=== PATIENT | female | born 1950 | race Caucasian/White ===

== ENCOUNTER 2020-01-10 17:18 | Emergency (ER) | payer MEDICARE, MEDICAID ==
[~2020-01-10] VITALS: Ht 157.5 cm; Wt 52.2 kg
[~2020-01-10 17:18] MED LIST: NO HOME MEDS; PHEN-786 PO
[2020-01-10] MEDS ORDERED: normal saline 1000ML IV soln IVB ONE (17:25)
[2020-01-10 17:49] LABS: ALANINE AMINOTRANSFERASE 7 U/L (12-78); ALBUMIN 3.3 G/DL (3.4-5.0); ALKALINE PHOSPHATASE 107 IU/L (46-116); ANION GAP 9 (8-16); ASPARTATE AMINO TRANSFERASE 14 U/L (10-37); BILIRUBIN,TOTAL 0.3 MG/DL (0.1-1.0); BLOOD UREA NITROGEN 13 MG/DL (7-18); BUN/CREATININE RATIO 10.2 (6.6-38.0); CALCIUM 10.5 MG/DL (8.5-10.1); CHLORIDE 108 MMOL/L (99-107); CREATININE 1.27 MG/DL (0.40-0.90); GLUCOSE 157 MG/DL (70-104); POTASSIUM 4.5 MMOL/L (3.5-5.1); SODIUM 138 MMOL/L (135-145); TOTAL CARBON DIOXIDE 21.5 MMOL/L (24-32); TOTAL PROTEIN 6.5 G/DL (6.4-8.2); eGFR 42 ML/MIN
--- NOTE | 2020-01-10 18:25 | NUR ---
rcvd call from lab [facility], CBC clotted, she is re ordering
--- NOTE | 2020-01-10 18:42 | NUR ---
relieving RN for break, pt is resting quietly on bed, coreroom foundry laborer at bedside to redraw blood, gave pt warm blanket
[2020-01-10 18:48] LABS: BASOPHILS % (AUTO) 0.4 % (0-1); EOSINOPHILS # (AUTO) 0.1 X10'3 (0-0.9); EOSINOPHILS % (AUTO) 0.8 % (0-6); HEMATOCRIT 41.9 % (35.0-45.0); HEMOGLOBIN 13.6 g/dl (12.0-16.0); LYMPHOCYTES # (AUTO) 1.1 X10'3 (1.1-4.8); LYMPHOCYTES % (AUTO) 10.6 % (21-51); MEAN CORPUSCULAR HGB CONC 32.4 g/dL (33.0-36.5); MEAN CORPUSCULAR VOLUME 86.3 FL (78-98); MEAN PLATELET VOLUME 10.6 FL (7.4-10.4); MONOCYTES # (AUTO) 0.7 X10'3 (0-0.9); MONOCYTES % (AUTO) 6.3 % (2-12); NEUTROPHILS # (AUTO) 8.4 X10'3 (1.8-7.7); NEUTROPHILS % (AUTO) 81.9 % (42-75); RED BLOOD COUNT 4.85 X10'6 (4.20-5.60); RED CELL DISTRIBUTION WIDTH 15.1 % (11.5-14.5); WHITE BLOOD COUNT 10.3 X10'3 (4.5-11.0)
[2020-01-10 19:35] LABS: PLATELET COUNT 211 X10'3 (140-440)
[2020-01-10] MEDS ORDERED: HYDROcodone/acetaminophen 5mg/325mg tablet PO ONE (19:55)
[2020-01-10] MEDS ORDERED: HYDR-4383 PO (19:57)
[2020-01-10 20:20] VITALS: BP 126/81
== END 2020-01-10 20:50 | disposition home or self-care (01) ==
LOC: ER 17:18
DX: R42 Dizziness and giddiness (principal); I10 Essential (primary) hypertension; F17.200 Nicotine dependence, unspecified, uncomplicated; Z79.899 Other long term (current) drug therapy
CPT/HCPCS: 36415; 80053; 85025; 93005; 96360; 96361; 99285; J7030; 99284

== ENCOUNTER 2021-02-06 13:02 | Outpatient (CLI) | payer MEDICARE, MEDICAID ==
[~2021-02-06 13:02] MED LIST changes: +HYDR-4383 PO
== END 2021-02-06 23:59 | disposition home or self-care (01) ==
LOC: RAD 13:02
PROVIDERS: ATTEND Internal Medicine Gastroenterology
DX: K21.00 Gastro-esophageal reflux disease with esophagitis, without bleeding (principal); R13.14 Dysphagia, pharyngoesophageal phase
CPT/HCPCS: 74230

== ENCOUNTER 2024-06-21 02:04 | Inpatient (IN) | payer MEDICARE, MEDICAID ==
[~2024-06-21] VITALS: Ht 157.5 cm; Wt 45.0 kg
[2024-06-21] MEDS ORDERED: iohexol 350MG/ML 100ml bottle IV ONE (02:26)
[2024-06-21] MEDS: fentaNYL/PF 50MCG/1 ML 2ML syringe IV ONE (03:39)
[2024-06-21] MEDS: acetaminophen 1,000mg/100ml IV 100 ML IV ONE (03:40)
[2024-06-21 03:43] LABS: BASOPHILS % (AUTO) 0.4 % (0-1); EOSINOPHILS # (AUTO) 0.1 X10'3 (0-0.9); EOSINOPHILS % (AUTO) 1.9 % (0-6); HEMOGLOBIN 13.7 g/dl (12.0-16.0); NEUTROPHILS # (AUTO) 3.4 X10'3 (1.8-7.7)
[2024-06-21 03:45] LABS: HEMATOCRIT 41.1 % (35.0-45.0); LYMPHOCYTES # (AUTO) 1.8 X10'3 (1.1-4.8); LYMPHOCYTES % (AUTO) 30.9 % (21-51); MEAN CORPUSCULAR HEMOGLOBIN 27.2 PG (27.0-31.0); MEAN CORPUSCULAR HGB CONC 33.3 g/dL (33.0-36.5); MEAN CORPUSCULAR VOLUME 81.6 FL (78-98); MEAN PLATELET VOLUME 11.4 FL (7.4-10.4); MONOCYTES # (AUTO) 0.6 X10'3 (0-0.9); MONOCYTES % (AUTO) 9.4 % (2-12); NEUTROPHILS % (AUTO) 57.4 % (42-75); PLATELET COUNT 113 X10'3 (140-440); RED BLOOD COUNT 5.04 X10'6 (4.20-5.60); RED CELL DISTRIBUTION WIDTH 16.3 % (11.5-14.5); WHITE BLOOD COUNT 5.9 X10'3 (4.5-11.0)
[2024-06-21 03:47] LABS: ALBUMIN 3.1 G/DL (3.4-5.0); ANION GAP 4 (8-16); BLOOD UREA NITROGEN 15 MG/DL (7-18); BUN/CREATININE RATIO 14.9 (10.0-20.0); CALCIUM 10.3 MG/DL (8.5-10.1); CHLORIDE 108 MMOL/L (99-107); CREATININE 1.01 MG/DL (0.40-0.90); GLUCOSE 126 MG/DL (70-104); POTASSIUM 4.4 MMOL/L (3.5-5.1); SODIUM 137 MMOL/L (135-145); TOTAL CARBON DIOXIDE 25.5 MMOL/L (24-32); eCRCL 35 ML/MIN; eGFR 54 ML/MIN
[2024-06-21 03:51] LABS: APTT 26 SECONDS (22-32); INR 1.1 INR; PROTHROMBIN TIME 11.3 SECONDS (9.0-12.0)
[2024-06-21] MEDS ORDERED: magnesium Cl slow-release 64mg tablet PO PRN (04:40)
[2024-06-21] MEDS ORDERED: ondansetron/PF 4mg/2ml inj IV PRN (04:40)
[2024-06-21] MEDS ORDERED: mag hydrox/Alum hydrox/simeth 30ml oral suspension PO PRN (04:40)
[2024-06-21] MEDS: normal saline 1000ml 1,000 ML IV SCH (04:40)
[2024-06-21] MEDS ORDERED: magnesium sulf-water 4G/100mL 100 ML IV PRN (04:40)
[2024-06-21] MEDS ORDERED: potassium Cl 20 mEq SR tablet PO PRN ×2 (04:40)
[2024-06-21] MEDS ORDERED: acetaminophen 325mg tablet PO PRN (04:40)
[2024-06-21] MEDS ORDERED: potassium Cl 40MEQ/1/2NS 520ml 520 ML IV PRN (04:40)
[2024-06-21] MEDS ORDERED: magnesium sulf-water 2g/50mL 50 ML IV PRN (04:40)
[2024-06-21] MEDS ORDERED: magnesium hydroxide 30ml (MOM) UD suspension PO PRN (04:40)
[2024-06-21 05:07] LABS: ANISOCYTOSIS 1+; PLATELET ESTIMATE DECREASED
[2024-06-21 05:08] LABS: LARGE PLATELETS FEW
[2024-06-21] MEDS: K and/or MAG REPLACEMENT MC SCH (08:00)
[2024-06-21] MEDS: docusate sod 100mg capsule PO SCH (08:00)
[2024-06-21 08:18] LABS: HEMOGLOBIN A1C 5.3 % (4.5-6.2)
[2024-06-21 08:29] LABS: MAGNESIUM 2.2 MG/DL (1.5-2.4); THYROID STIMULATING HORMONE 1.42 ulU/ml (0.34-4.50)
[2024-06-21] MEDS: morphine 2 MG/ML inj. syringe IV PRN (14:45)
[2024-06-21 15:21] LABS: BILIRUBIN,URINE NEGATIVE (Neg); CLARITY,URINE CLOUDY (Clear); COLOR,URINE YELLOW (Yellow); GLUCOSE, URINE NEGATIVE (Neg); KETONES,URINE NEGATIVE (Neg); LEUKOCYTE ESTERASE ,URINE SMALL (Neg); NITRITES, URINE POSITIVE (Neg); OCCULT BLOOD,URINE NEGATIVE (Neg); PROTEIN,URINE NEGATIVE (Neg)
[2024-06-21 15:29] LABS: UA COLLECTION TYPE CLN CATCH MIDSTREAM
[2024-06-21 15:30] LABS: BACTERIA,URINE 4+ /HPF (Neg); SQUAMOUS EPITHELIAL CELL,UR MODERATE /LPF (FEW); WBC,URINE TNTC /HPF (0-4)
[2024-06-21 15:32] LABS: WBC CLUMPS,URINE FEW /HPF (NEGATIVE)
[2024-06-21 18:00] VITALS: BP 160/97; PULSE 82; RESP 20; TEMP 98.8; O2SAT 96
[2024-06-21] MEDS: lisinopril 5mg tablet PO SCH (19:10)
[2024-06-21 22:00] VITALS: BP 154/84; PULSE 93; RESP 18; TEMP 98.4; O2SAT 95
[2024-06-22] VITALS (25 sets, daily range): BP systolic 86–138; BP diastolic 54–78; PULSE 63–79; RESP 13–18; TEMP 97.6–99.2; O2SAT 93–98
[2024-06-22] MEDS ORDERED: fentaNYL/PF 50MCG/1 ML 2ML syringe IV PRN ×2 (06:15)
[2024-06-22] MEDS ORDERED: labetalol 20mg/4ml (5mg/ml) syringe IV PRN (06:15)
[2024-06-22] MEDS ORDERED: ondansetron/PF 4mg/2ml inj IV PRN (06:15)
[2024-06-22] MEDS ORDERED: morphine 4 MG/ML inj SYRINge IV PRN (06:15)
[2024-06-22] MEDS: ringers solution, lacted 1,000 ML IV SCH (06:15)
[2024-06-22] MEDS ORDERED: hydrALAZINE 20mg/ml inj. IV PRN (06:15)
[2024-06-22] MEDS ORDERED: morphine 2 MG/ML inj. syringe IV PRN (06:15)
[2024-06-22 06:48] LABS: ALANINE AMINOTRANSFERASE 79 U/L (12-78); ALBUMIN 2.7 G/DL (3.4-5.0); ALKALINE PHOSPHATASE 153 IU/L (46-116); ANION GAP 6 (8-16); ASPARTATE AMINO TRANSFERASE 45 U/L (10-37); BILIRUBIN,TOTAL 0.7 MG/DL (0.1-1.0); BLOOD UREA NITROGEN 12 MG/DL (7-18); BUN/CREATININE RATIO 13.2 (10.0-20.0); CALCIUM 9.7 MG/DL (8.5-10.1); CHLORIDE 107 MMOL/L (99-107); CHOL/HDL RATIO 4.8 (0.00-4.99); CHOLESTEROL 158 MG/DL (0-200); CREATININE 0.91 MG/DL (0.40-0.90); GLUCOSE 101 MG/DL (70-104); HDL CHOLESTEROL 33 MG/DL (35-60); LDL CHOLESTEROL 87 MG/DL (50-100); POTASSIUM 4.2 MMOL/L (3.5-5.1); SODIUM 134 MMOL/L (135-145); TOTAL CARBON DIOXIDE 21.5 MMOL/L (24-32); TOTAL PROTEIN 5.3 G/DL (6.4-8.2); TRIGLYCERIDES 167 MG/DL (20-135); eCRCL 39 ML/MIN; eGFR 60 ML/MIN
[2024-06-22 06:57] LABS: BASOPHILS % (AUTO) 0.3 % (0-1); EOSINOPHILS # (AUTO) 0.1 X10'3 (0-0.9); EOSINOPHILS % (AUTO) 1.4 % (0-6); LYMPHOCYTES % (AUTO) 34.3 % (21-51)
[2024-06-22 06:58] LABS: HEMATOCRIT 39.3 % (35.0-45.0); HEMOGLOBIN 12.8 g/dl (12.0-16.0); LYMPHOCYTES # (AUTO) 2.7 X10'3 (1.1-4.8); MEAN CORPUSCULAR HEMOGLOBIN 26.6 PG (27.0-31.0); MEAN CORPUSCULAR HGB CONC 32.6 g/dL (33.0-36.5); MEAN CORPUSCULAR VOLUME 81.7 FL (78-98); MONOCYTES # (AUTO) 0.7 X10'3 (0-0.9); MONOCYTES % (AUTO) 8.3 % (2-12); NEUTROPHILS # (AUTO) 4.5 X10'3 (1.8-7.7); NEUTROPHILS % (AUTO) 55.7 % (42-75); PLATELET COUNT 113 X10'3 (140-440); RED BLOOD COUNT 4.81 X10'6 (4.20-5.60)
[2024-06-22] MEDS ORDERED: LIDOcaine 2% (20mg/ml) 5ml vial ONE (07:20)
[2024-06-22] MEDS ORDERED: propofol inj 20 ML IV ONE (07:20)
[2024-06-22] MEDS: vancomycin/NS 1 GM ADD-VANTAGE 250 ML IV STA (07:30)
[2024-06-22] MEDS ORDERED: cefazolin 2gm/D5W 100ml IV.soln IV ONE (07:35)
[2024-06-22] MEDS ORDERED: fentaNYL/PF 50MCG/1 ML 2ML syringe ONE (07:42)
[2024-06-22] MEDS ORDERED: midazolam 1 mg/ML 2ml injection ONE (07:43)
[2024-06-22] MEDS ORDERED: dexamethasone sod phosphate 4mg/ml inj. ONE (07:59)
[2024-06-22] MEDS: ceFAZolin/D5W- 1GM premix 50 ML IV SCH (08:00)
[2024-06-22] MEDS ORDERED: acetaminophen 1,000mg/100ml IV 100 ML IV ONE (08:03)
[2024-06-23 05:51] LABS: BASOPHILS % (AUTO) 0.2 % (0-1); HEMOGLOBIN 12.1 g/dl (12.0-16.0); LYMPHOCYTES # (AUTO) 2.4 X10'3 (1.1-4.8); MEAN CORPUSCULAR VOLUME 82.2 FL (78-98); WHITE BLOOD COUNT 10.1 X10'3 (4.5-11.0)
[2024-06-23 05:53] LABS: EOSINOPHILS % (AUTO) 0 % (0-6); HEMATOCRIT 36.7 % (35.0-45.0); LYMPHOCYTES % (AUTO) 23.9 % (21-51); MEAN CORPUSCULAR HGB CONC 32.9 g/dL (33.0-36.5); MEAN PLATELET VOLUME 11.9 FL (7.4-10.4); MONOCYTES # (AUTO) 0.9 X10'3 (0-0.9); MONOCYTES % (AUTO) 8.6 % (2-12); NEUTROPHILS # (AUTO) 6.8 X10'3 (1.8-7.7); NEUTROPHILS % (AUTO) 67.3 % (42-75); PLATELET COUNT 117 X10'3 (140-440); RED BLOOD COUNT 4.46 X10'6 (4.20-5.60); RED CELL DISTRIBUTION WIDTH 16.6 % (11.5-14.5)
[2024-06-23 06:00] VITALS: BP 111/68; PULSE 74; RESP 16; TEMP 98.4; O2SAT 97
[2024-06-23 06:02] LABS: ALANINE AMINOTRANSFERASE 56 U/L (12-78); ALBUMIN 2.6 G/DL (3.4-5.0); ALKALINE PHOSPHATASE 130 IU/L (46-116); ANION GAP 6 (8-16); ASPARTATE AMINO TRANSFERASE 31 U/L (10-37); BILIRUBIN,TOTAL 0.6 MG/DL (0.1-1.0); BLOOD UREA NITROGEN 20 MG/DL (7-18); BUN/CREATININE RATIO 23.3 (10.0-20.0); CALCIUM 10.2 MG/DL (8.5-10.1); CHLORIDE 109 MMOL/L (99-107); CREATININE 0.86 MG/DL (0.40-0.90); GLUCOSE 123 MG/DL (70-104); POTASSIUM 4.7 MMOL/L (3.5-5.1); SODIUM 136 MMOL/L (135-145); TOTAL CARBON DIOXIDE 20.6 MMOL/L (24-32); TOTAL PROTEIN 5.2 G/DL (6.4-8.2); eCRCL 41 ML/MIN; eGFR 65 ML/MIN
[2024-06-23 08:35] LABS: GIANT PLATELET FEW; LARGE PLATELETS MODERATE; PLATELET ESTIMATE DECREASED
[2024-06-23 10:00] VITALS: BP 107/69; PULSE 94; RESP 20; TEMP 97.7; O2SAT 94
[2024-06-23] MEDS: HYDROmorphone inj. 0.5 MG/0.5 ML DISP.SYRIN IV PRN (13:13)
[2024-06-23 18:00] VITALS: BP 113/67; PULSE 87; RESP 16; TEMP 98.6; O2SAT 97
[2024-06-23] MEDS ORDERED: HYDROcodone/acetaminophen 5mg/325mg tablet 1/2 TAB PO PRN (20:45)
[2024-06-23] MEDS: CefTRIAXone/D5W-Rocephin 1gm 50 ML IV SCH (21:53)
[2024-06-23 22:00] VITALS: BP 159/98; PULSE 90; RESP 20; TEMP 97.4; O2SAT 96
[2024-06-24] MEDS: HYDROcodone/acetaminophen 5mg/325mg tablet PO PRN (00:39)
[2024-06-24 06:00] VITALS: BP 99/66; PULSE 78; RESP 18; TEMP 99.1; O2SAT 95
[2024-06-24 07:10] LABS: BASOPHILS % (AUTO) 0.3 % (0-1); EOSINOPHILS # (AUTO) 0.2 X10'3 (0-0.9); EOSINOPHILS % (AUTO) 2.6 % (0-6); HEMATOCRIT 33.4 % (35.0-45.0); HEMOGLOBIN 10.8 g/dl (12.0-16.0); LYMPHOCYTES # (AUTO) 2.6 X10'3 (1.1-4.8); LYMPHOCYTES % (AUTO) 40.3 % (21-51); MEAN CORPUSCULAR HEMOGLOBIN 26.2 PG (27.0-31.0); MEAN CORPUSCULAR HGB CONC 32.3 g/dL (33.0-36.5); MEAN CORPUSCULAR VOLUME 81.1 FL (78-98); MEAN PLATELET VOLUME 11.4 FL (7.4-10.4); MONOCYTES # (AUTO) 0.4 X10'3 (0-0.9); MONOCYTES % (AUTO) 6.9 % (2-12); NEUTROPHILS # (AUTO) 3.2 X10'3 (1.8-7.7); NEUTROPHILS % (AUTO) 49.9 % (42-75); PLATELET COUNT 107 X10'3 (140-440); RED BLOOD COUNT 4.11 X10'6 (4.20-5.60); RED CELL DISTRIBUTION WIDTH 16.1 % (11.5-14.5); WHITE BLOOD COUNT 6.4 X10'3 (4.5-11.0)
[2024-06-24 07:31] LABS: ALANINE AMINOTRANSFERASE 42 U/L (12-78); ALBUMIN 2.4 G/DL (3.4-5.0); ALKALINE PHOSPHATASE 111 IU/L (46-116); ANION GAP 8 (8-16); ASPARTATE AMINO TRANSFERASE 27 U/L (10-37); BILIRUBIN,TOTAL 0.5 MG/DL (0.1-1.0); BLOOD UREA NITROGEN 19 MG/DL (7-18); CALCIUM 9.4 MG/DL (8.5-10.1); CHLORIDE 106 MMOL/L (99-107); GLUCOSE 119 MG/DL (70-104); MAGNESIUM 1.9 MG/DL (1.5-2.4); SODIUM 135 MMOL/L (135-145); TOTAL CARBON DIOXIDE 20.6 MMOL/L (24-32); TOTAL PROTEIN 4.9 G/DL (6.4-8.2); eCRCL 35 ML/MIN; eGFR 54 ML/MIN
[2024-06-24 08:00] VITALS: BP_SYST 120; BP_SYST 127; BP_DIAS 52; BP_DIAS 80; PULSE 83; PULSE 88; RESP 16; O2SAT 100
[2024-06-24 10:00] VITALS: BP 110/69; PULSE 88; RESP 18; TEMP 97.9; O2SAT 99
[2024-06-24 10:09] VITALS: BP 110/69; PULSE 88; RESP 18; TEMP 97.9; O2SAT 99
[2024-06-24 16:02] VITALS: RESP 22
== END 2024-06-24 16:25 | DRG 481 ==
LOC: ER 02:05 → ED HOLD 04:47 → EDBEDREQ 04:58 → ORTHO 4S 17:40
PROVIDERS: ADMIT Internal Medicine Critical Care Medicine; ATTEND Internal Medicine
PROC: 0QS734Z Reposition Left Upper Femur with Internal Fixation Device, Percutaneous Approach (ICD-10-PCS; principal; 2024-06-22 07:35)
DX: S72.012A Unspecified intracapsular fracture of left femur, initial encounter for closed fracture (principal); E44.0 Moderate protein-calorie malnutrition; Z68.1 Body mass index [BMI] 19.9 or less, adult; N39.0 Urinary tract infection, site not specified; Z20.822 Contact with and (suspected) exposure to COVID-19; I10 Essential (primary) hypertension; J44.9 Chronic obstructive pulmonary disease, unspecified; W18.39XA Other fall on same level, initial encounter; S09.8XXA Other specified injuries of head, initial encounter; F17.210 Nicotine dependence, cigarettes, uncomplicated; Z79.899 Other long term (current) drug therapy; Z98.891 History of uterine scar from previous surgery; Y93.89 Activity, other specified; Y92.89 Other specified places as the place of occurrence of the external cause; Y99.8 Other external cause status
CPT/HCPCS: 36415; 70450; 71045; 72192; 73502; 76000; 80048; 80053; 80061; 81001; 82607; 82948; 83036; 83735; 84443; 85008; 85025; 85610; 85730; 86885; 86900; 86901; 87077; 87081; 87088; 87186; 87811; 93005; 93306; 97116; 97161; 97530; 99285; A4615; A4618; A6258; A7000; C1713; G0378; J0131; J0690; J0696; J1100; J1171; J2250; J2270; J2371; J2405; J2704; J3010; J3490; J7030; J7120; Q9967

== ENCOUNTER 2024-06-25 11:28 | Inpatient (IN) | payer MEDICARE, MEDICAID ==
[~2024-06-25] VITALS: Ht 162.6 cm; Wt 51.0 kg
[2024-06-25 12:07] LABS: BILIRUBIN,URINE NEGATIVE (Neg); CLARITY,URINE CLEAR (Clear); COLOR,URINE YELLOW (Yellow); GLUCOSE, URINE NEGATIVE (Neg); KETONES,URINE NEGATIVE (Neg); LEUKOCYTE ESTERASE ,URINE NEGATIVE (Neg); NITRITES, URINE NEGATIVE (Neg); OCCULT BLOOD,URINE NEGATIVE (Neg); PROTEIN,URINE NEGATIVE (Neg); UROBILINOGEN,URINE 0.2 E.U/dL (0.2-1.0)
[2024-06-25 12:08] LABS: UA COLLECTION TYPE STRAIGHT CATH
[2024-06-25 13:01] LABS: BASOPHILS % (AUTO) 0.5 % (0-1); EOSINOPHILS % (AUTO) 0.1 % (0-6); LYMPHOCYTES # (AUTO) 0.9 X10'3 (1.1-4.8); MONOCYTES # (AUTO) 0.3 X10'3 (0-0.9)
[2024-06-25 13:04] LABS: HEMATOCRIT 34.7 % (35.0-45.0); HEMOGLOBIN 11.7 g/dl (12.0-16.0); LYMPHOCYTES % (AUTO) 19.2 % (21-51); MEAN CORPUSCULAR HEMOGLOBIN 27.3 PG (27.0-31.0); MEAN CORPUSCULAR HGB CONC 33.7 g/dL (33.0-36.5); MEAN PLATELET VOLUME 11.1 FL (7.4-10.4); MONOCYTES % (AUTO) 6.9 % (2-12); NEUTROPHILS # (AUTO) 3.5 X10'3 (1.8-7.7); NEUTROPHILS % (AUTO) 73.3 % (42-75); PLATELET COUNT 106 X10'3 (140-440); RED BLOOD COUNT 4.29 X10'6 (4.20-5.60); RED CELL DISTRIBUTION WIDTH 15.6 % (11.5-14.5); WHITE BLOOD COUNT 4.7 X10'3 (4.5-11.0)
[2024-06-25 13:16] LABS: ALBUMIN 2.7 G/DL (3.4-5.0); ANION GAP 8 (8-16); BLOOD UREA NITROGEN 15 MG/DL (7-18); BUN/CREATININE RATIO 15.6 (10.0-20.0); CALCIUM 9.9 MG/DL (8.5-10.1); CHLORIDE 100 MMOL/L (99-107); CREATININE 0.96 MG/DL (0.40-0.90); GLUCOSE 105 MG/DL (70-104); MAGNESIUM 2.1 MG/DL (1.5-2.4); POTASSIUM 3.7 MMOL/L (3.5-5.1); SODIUM 129 MMOL/L (135-145); TOTAL CARBON DIOXIDE 21.3 MMOL/L (24-32); eCRCL 41 ML/MIN; eGFR 57 ML/MIN
[2024-06-25 13:38] LABS: LARGE PLATELETS MODERATE; PLATELET ESTIMATE DECREASED
[2024-06-25] MEDS ORDERED: iohexol 300mg/ml 100ml inj. ONE (17:07)
[2024-06-25] MEDS: normal saline 1000ml 1,000 ML IV ONE (17:09)
[2024-06-25] MEDS: vancomycin/NS 1 GM ADD-VANTAGE 250 ML X 1 DOSE IV ONE (17:53)
[2024-06-25] MEDS: cefepime 2g/NS 100ml ADVANTAGE 100 ML IV ONE (19:01)
[2024-06-25] MEDS ORDERED: potassium Cl 20 mEq SR tablet PO PRN ×2 (19:45)
[2024-06-25] MEDS ORDERED: potassium Cl 40MEQ/1/2NS 520ml 520 ML IV PRN (19:45)
[2024-06-25] MEDS ORDERED: magnesium sulf-water 4G/100mL 100 ML IV PRN (19:45)
[2024-06-25] MEDS ORDERED: magnesium Cl slow-release 64mg tablet PO PRN (19:45)
[2024-06-25] MEDS ORDERED: magnesium hydroxide 30ml (MOM) UD suspension PO PRN (19:45)
[2024-06-25] MEDS ORDERED: magnesium sulf-water 2g/50mL 50 ML IV PRN (19:45)
[2024-06-25] MEDS ORDERED: mag hydrox/Alum hydrox/simeth 30ml oral suspension PO PRN (19:45)
[2024-06-25] MEDS ORDERED: ondansetron/PF 4mg/2ml inj IV PRN (19:45)
[2024-06-25] MEDS: K and/or MAG REPLACEMENT MC SCH (20:00)
[2024-06-25] MEDS: docusate sod 100mg capsule PO SCH (20:00)
[2024-06-25] MEDS: normal saline 1000ml 1,000 ML IV SCH ×2 (20:55)
[2024-06-25 21:27] LABS: SODIUM,URINE RANDOM 150 MEQ/L; URINE AMPHETAMINE SCREEN NEGATIVE (Neg); URINE BARBITUATE SCREEN NEGATIVE (Neg); URINE BENZODIAZEPINES SCREEN NEGATIVE (Neg); URINE CANNABINOID SCREEN NEGATIVE (Neg); URINE COCAINE SCREEN NEGATIVE (Neg); URINE METHADONE SCREEN NEGATIVE (Neg); URINE OPIATE SCREEN POSITIVE (Neg); URINE PHENCYCLIDINE SCREEN NEGATIVE (Neg)
[2024-06-25 21:31] LABS: OSMOLALITY 271 MOSM/K (280-300)
[2024-06-25 22:02] LABS: OSMOLALITY UA 465 MOSM/K (50-1400)
[2024-06-25 22:25] LABS: THYROID STIMULATING HORMONE 0.89 ulU/ml (0.34-4.50)
[2024-06-25 22:55] VITALS: BP 151/128; PULSE 110; RESP 19; TEMP 98.6; O2SAT 91
[2024-06-25] MEDS: HYDROmorphone/PF 0.2 MG/ML SYRINGE IV PRN (23:13)
[2024-06-26] VITALS (7 sets, daily range): BP systolic 95–164; BP diastolic 62–82; PULSE 74–101; RESP 16–19; TEMP 97.7–101; O2SAT 95–97
[2024-06-26 06:43] LABS: BASOPHILS % (AUTO) 0.3 % (0-1); EOSINOPHILS % (AUTO) 0.1 % (0-6); HEMATOCRIT 33.8 % (35.0-45.0); HEMOGLOBIN 10.8 g/dl (12.0-16.0); LYMPHOCYTES # (AUTO) 1.4 X10'3 (1.1-4.8); LYMPHOCYTES % (AUTO) 22.2 % (21-51); MEAN CORPUSCULAR VOLUME 81.3 FL (78-98); MEAN PLATELET VOLUME 11.2 FL (7.4-10.4); MONOCYTES # (AUTO) 0.6 X10'3 (0-0.9); MONOCYTES % (AUTO) 9.2 % (2-12); NEUTROPHILS # (AUTO) 4.3 X10'3 (1.8-7.7); NEUTROPHILS % (AUTO) 68.2 % (42-75); PLATELET COUNT 99 X10'3 (140-440); RED BLOOD COUNT 4.16 X10'6 (4.20-5.60); RED CELL DISTRIBUTION WIDTH 15.6 % (11.5-14.5); WHITE BLOOD COUNT 6.4 X10'3 (4.5-11.0)
[2024-06-26 06:45] LABS: D-DIMER 6.66 MG/L FEU (0-0.50)
[2024-06-26 06:47] LABS: ALANINE AMINOTRANSFERASE 48 U/L (12-78); ALBUMIN 2.4 G/DL (3.4-5.0); ALBUMIN/GLOBULIN RATIO 0.9 (1.1-1.5); ALKALINE PHOSPHATASE 155 IU/L (46-116); ANION GAP 10 (8-16); ASPARTATE AMINO TRANSFERASE 45 U/L (10-37); BLOOD UREA NITROGEN 12 MG/DL (7-18); BUN/CREATININE RATIO 15.2 (10.0-20.0); CALCIUM 9.4 MG/DL (8.5-10.1); CHLORIDE 102 MMOL/L (99-107); CREATININE 0.79 MG/DL (0.40-0.90); GLUCOSE 90 MG/DL (70-104); SODIUM 132 MMOL/L (135-145); TOTAL PROTEIN 5.2 G/DL (6.4-8.2); eCRCL 50 ML/MIN; eGFR 71 ML/MIN
[2024-06-26] MEDS: cefepime 2g/NS 100ml ADVANTAGE 100 ML IV SCH (07:12)
[2024-06-26] MEDS ORDERED: vancomycin inj 1,000 MG in normal saline 250ml IV soln 250 ML IV ONE (09:20)
[2024-06-26] MEDS: acetaminophen 325mg tablet PO PRN (09:30)
[2024-06-26] MEDS: vancomycin/NS 1 GM ADD-VANTAGE 250 ML IV SCH (10:29)
[2024-06-26] MEDS: enoxaparin 40mg/0.4ml syringe SUBCUT SCH (20:00)
[2024-06-27 06:07] VITALS: RESP 20
[2024-06-27] MEDS: morphine 2 MG/ML inj. syringe IV PRN (06:07)
[2024-06-27 06:14] LABS: BASOPHILS % (AUTO) 0.2 % (0-1); EOSINOPHILS # (AUTO) 0.1 X10'3 (0-0.9); LYMPHOCYTES # (AUTO) 1.6 X10'3 (1.1-4.8); MEAN CORPUSCULAR HEMOGLOBIN 26.7 PG (27.0-31.0); MEAN CORPUSCULAR VOLUME 80.9 FL (78-98); NEUTROPHILS # (AUTO) 2.9 X10'3 (1.8-7.7); WHITE BLOOD COUNT 5.1 X10'3 (4.5-11.0)
[2024-06-27 06:16] LABS: EOSINOPHILS % (AUTO) 1.5 % (0-6); HEMATOCRIT 29.8 % (35.0-45.0); HEMOGLOBIN 9.8 g/dl (12.0-16.0); LYMPHOCYTES % (AUTO) 30.4 % (21-51); MEAN PLATELET VOLUME 10.9 FL (7.4-10.4); MONOCYTES # (AUTO) 0.6 X10'3 (0-0.9); MONOCYTES % (AUTO) 11.1 % (2-12); NEUTROPHILS % (AUTO) 56.8 % (42-75); PLATELET COUNT 91 X10'3 (140-440); RED BLOOD COUNT 3.68 X10'6 (4.20-5.60); RED CELL DISTRIBUTION WIDTH 15.8 % (11.5-14.5)
[2024-06-27 06:22] LABS: ALANINE AMINOTRANSFERASE 38 U/L (12-78); ALBUMIN/GLOBULIN RATIO 0.7 (1.1-1.5); ALKALINE PHOSPHATASE 138 IU/L (46-116); ANION GAP 6 (8-16); ASPARTATE AMINO TRANSFERASE 33 U/L (10-37); BILIRUBIN,TOTAL 0.8 MG/DL (0.1-1.0); BLOOD UREA NITROGEN 18 MG/DL (7-18); BUN/CREATININE RATIO 23.1 (10.0-20.0); CALCIUM 9.7 MG/DL (8.5-10.1); CHLORIDE 108 MMOL/L (99-107); CREATININE 0.78 MG/DL (0.40-0.90); GLUCOSE 102 MG/DL (70-104); POTASSIUM 3.7 MMOL/L (3.5-5.1); SODIUM 134 MMOL/L (135-145); TOTAL CARBON DIOXIDE 20.4 MMOL/L (24-32); TOTAL PROTEIN 4.7 G/DL (6.4-8.2); eCRCL 51 ML/MIN; eGFR 72 ML/MIN
[2024-06-27] MEDS: cefepime 2g/NS 100ml ADVANTAGE 100 ML IV SCH (07:28)
[2024-06-27 10:00] LABS: BURR CELLS 1+; PLATELET ESTIMATE DECREASED
[2024-06-29] MEDS ORDERED: VANCOMYCIN LEVEL IV ONE (09:30)
== END 2024-06-27 14:15 | DRG 863 ==
LOC: ER 11:29 → ED HOLD 20:02 → ORTHO 4S 22:52
PROVIDERS: ADMIT Internal Medicine Critical Care Medicine; ATTEND Family Medicine
PROC: BW211ZZ Computerized Tomography (CT Scan) of Abdomen and Pelvis using Low Osmolar Contrast (ICD-10-PCS; principal; 2024-06-25)
DX: T81.49XA Infection following a procedure, other surgical site, initial encounter (principal); E87.1 Hypo-osmolality and hyponatremia; L03.116 Cellulitis of left lower limb; L02.416 Cutaneous abscess of left lower limb; J44.9 Chronic obstructive pulmonary disease, unspecified; I10 Essential (primary) hypertension; D72.810 Lymphocytopenia; Y83.8 Other surgical procedures as the cause of abnormal reaction of the patient, or of later complication, without mention of misadventure at the time of the procedure; D64.9 Anemia, unspecified; Y92.89 Other specified places as the place of occurrence of the external cause
CPT/HCPCS: 36415; 71045; 72193; 80048; 80053; 80305; 81003; 83605; 83735; 83930; 83935; 84133; 84145; 84300; 84443; 84550; 85008; 85025; 85379; 87040; 87081; 87088; 87502; 87503; 93005; 96361; 96365; 96366; 96368; 97116; 97161; 97530; 99285; A4314; A6250; A6258; C1758; G0378; J0692; J1171; J2270; J3370; J7030; Q9967